=== PATIENT | male | born 1935 | race African-American/Black ===

== ENCOUNTER 2016-11-30 12:07 | Emergency (ER) | payer MEDICARE, MEDICAID ==
[~2016-11-30] VITALS: Ht 175.3 cm; Wt 72.0 kg
[~2016-11-30 12:07] MED LIST: ALBU2.5V13 IH; ASPI-1158 PO; BECL8.7A6 INH; ERGO500013 PO; FLUT1DIS3 IH; GUAI400T40 PO; LATA2.5D2 EACHEYE; LOSA100T14 PO; P50 PO; PANT40TA4 PO; PRAV20TA PO; TAMS-11 PO; TRU10 EACHEYE
[2016-11-30] MEDS ORDERED: SODIUM CHLORIDE 0.9% 1,000 ML IV ONE (15:09)
[2016-11-30] MEDS ORDERED: IBUPROFEN 600MG TABLET PO ONE (15:15)
[2016-11-30 15:34] LABS: BASOPHILS % 0.7 % (0.0-2.0); EOSINOPHILS % 7.3 % (0.0-5.0); HEMATOCRIT. 39.9 % (42.0-52.0); HEMOGLOBIN. 13.1 g/dL (14.0-18.0); LYMPHOCYTES % 37.5 % (20.0-50.0); MEAN CORPUSCULAR HEMOGLOBIN 28.8 pg (28.0-32.0); MEAN CORPUSCULAR VOLUME 87.9 fL (80.0-94.0); MEAN PLATELET VOLUME 10.8 fl (7.4-10.4); MONOCYTES % 7.9 % (2.0-8.0); NEUTROPHILS % 46.6 % (40.0-76.0); PLATELET 120 x1000/uL (130-400); RED BLOOD CELL COUNT 4.53 mill/uL (4.7-6.1); RED CELL DISTRIBUTION WIDTH 15.4 % (11.6-14.6)
[2016-11-30 15:35] LABS: CHLORIDE 106 mEq/L (98-107)
[2016-11-30 15:37] LABS: CARBON DIOXIDE 28 mEq/L (21-32)
[2016-11-30 15:43] LABS: TROPONIN I < 0.02 ng/mL (0.00-0.04)
[2016-11-30 15:59] LABS: CLARITY URINE CLOUDY (CLEAR); COLOR URINE DARK YELLOW (YELLOW); GLUCOSE URINE NEGATIVE (NEGATIVE); KETONES URINE TRACE (NEGATIVE); LEUKOCYTE ESTERASE URINE 3+ (NEGATIVE); NITRITE URINE POSITIVE (NEGATIVE); OCCULT BLOOD URINE TRACE (NEGATIVE); PROTEIN URINE NEGATIVE (NEGATIVE); SPECIFIC GRAVITY URINE 1.017 (1.005-1.030)
[2016-11-30] MEDS ORDERED: CEFTRIAXONE 1 G PREMIX 50 ML IV ONE (16:30)
[2016-11-30 17:21] VITALS: BP 147/78
== END 2016-11-30 19:05 | disposition home or self-care (01) ==
LOC: ER 12:22
DX: N39.0 Urinary tract infection, site not specified (principal); R51 Headache; I10 Essential (primary) hypertension; R91.8 Other nonspecific abnormal finding of lung field; D69.6 Thrombocytopenia, unspecified; J44.9 Chronic obstructive pulmonary disease, unspecified; J45.909 Unspecified asthma, uncomplicated; H40.9 Unspecified glaucoma; I25.2 Old myocardial infarction; Z79.82 Long term (current) use of aspirin; Z79.899 Other long term (current) drug therapy
CPT/HCPCS: 36415; 70450; 71010; 80048; 81001; 84484; 85025; 93005; 96361; 96365; 99285; J0696; J7030

== ENCOUNTER 2017-01-08 20:01 | Emergency (ER) | payer MEDICARE, MEDICAID ==
[~2017-01-08] VITALS: Ht 177.8 cm; Wt 96.0 kg
[2017-01-09] MEDS ORDERED: ALBUTEROL (0.083%) 2.5MG/3ML NEB HHN STA (01:00)
[2017-01-09] MEDS ORDERED: IPRATROPIUM BROMIDE (0.02%) 0.5MG/2.5ML NEB HHN STA (01:00)
[2017-01-09 01:51] LABS: CHLORIDE 106 mEq/L (98-107)
[2017-01-09 01:54] LABS: HEMATOCRIT. 38.6 % (42.0-52.0); HEMOGLOBIN. 12.8 g/dL (14.0-18.0); MEAN CORPUSCULAR HEMOGLOBIN 28.7 pg (28.0-32.0); MEAN CORPUSCULAR VOLUME 86.5 fL (80.0-94.0); MEAN PLATELET VOLUME 11.1 fl (7.4-10.4); PLATELET 129 x1000/uL (130-400); RED BLOOD CELL COUNT 4.46 mill/uL (4.7-6.1); RED CELL DISTRIBUTION WIDTH 14.1 % (11.6-14.6)
[2017-01-09 02:00] LABS: CARBON DIOXIDE 31 mEq/L (21-32)
[2017-01-09 03:49] VITALS: BP 120/66
[2017-01-09 06:14] LABS: PLATELET ESTIMATE SLIGHTLY DECREASED
== END 2017-01-09 03:53 | disposition home or self-care (01) ==
LOC: ER 20:16
DX: J45.909 Unspecified asthma, uncomplicated (principal); J20.9 Acute bronchitis, unspecified; I10 Essential (primary) hypertension; J44.0 Chronic obstructive pulmonary disease with (acute) lower respiratory infection; Z87.891 Personal history of nicotine dependence; Z79.82 Long term (current) use of aspirin
CPT/HCPCS: 36415; 71010; 80053; 85025; 94640; 99285; J7611

== ENCOUNTER 2017-02-21 10:50 | Emergency (ER) | payer MEDICARE, MEDICAID ==
[~2017-02-21] VITALS: Ht 177.8 cm; Wt 80.4 kg
[2017-02-21 12:48] LABS: BASOPHILS % 0.3 % (0.0-2.0); EOSINOPHILS % 3.3 % (0.0-5.0); HEMATOCRIT. 38.1 % (42.0-52.0); HEMOGLOBIN. 12.6 g/dL (14.0-18.0); LYMPHOCYTES % 21.1 % (20.0-50.0); MEAN CORPUSCULAR HEMOGLOBIN 28.7 pg (28.0-32.0); MEAN CORPUSCULAR VOLUME 86.7 fL (80.0-94.0); MEAN PLATELET VOLUME 10.4 fl (7.4-10.4); MONOCYTES % 12.8 % (2.0-8.0); NEUTROPHILS % 62.5 % (40.0-76.0); PLATELET 111 x1000/uL (130-400); RED BLOOD CELL COUNT 4.39 mill/uL (4.7-6.1); RED CELL DISTRIBUTION WIDTH 15.4 % (11.6-14.6)
[2017-02-21 12:54] LABS: CHLORIDE 106 mEq/L (98-107)
[2017-02-21 12:55] LABS: INR 1.1; PROTHROMBIN TIME 11.8 sec
[2017-02-21 12:59] LABS: GLUCOSE URINE NEGATIVE (NEGATIVE); KETONES URINE 1+ (NEGATIVE); LEUKOCYTE ESTERASE URINE 3+ (NEGATIVE); NITRITE URINE POSITIVE (NEGATIVE); OCCULT BLOOD URINE 3+ (NEGATIVE); PROTEIN URINE 3+ (NEGATIVE); SPECIFIC GRAVITY URINE 1.017 (1.005-1.030)
[2017-02-21 13:04] LABS: CARBON DIOXIDE 29 mEq/L (21-32)
[2017-02-21 13:04] LABS: CLARITY URINE CLOUDY (CLEAR); COLOR URINE RED (YELLOW)
[2017-02-21 13:37] LABS: *AMPHETAMINES SCREEN URINE NEGATIVE (NEGATIVE); *BARBITURATES SCREEN URINE NEGATIVE (NEGATIVE); *BENZODIAZEPINES SCREEN URINE NEGATIVE (NEGATIVE); *COCAINE SCREEN URINE NEGATIVE (NEGATIVE); CANNABINOID URINE SCREEN NEGATIVE (NEGATIVE); METHADONE URINE SCREEN NEGATIVE (NEGATIVE); OPIATES URINE SCREEN NEGATIVE (NEGATIVE); PHENCYCLIDINE URINE SCREEN NEGATIVE (NEGATIVE)
[2017-02-21 15:03] VITALS: BP 155/72
== END 2017-02-21 15:42 | disposition left against medical advice (07) ==
LOC: ER 12:13
DX: N39.0 Urinary tract infection, site not specified (principal); R33.9 Retention of urine, unspecified; R10.9 Unspecified abdominal pain; J45.909 Unspecified asthma, uncomplicated; J44.9 Chronic obstructive pulmonary disease, unspecified; I10 Essential (primary) hypertension; N40.0 Benign prostatic hyperplasia without lower urinary tract symptoms; Z79.82 Long term (current) use of aspirin
CPT/HCPCS: 36415; 80053; 80305; 81001; 85025; 85610; 93005; 99285; A4315

== ENCOUNTER 2017-03-13 17:58 | Inpatient (IN) | payer MEDICARE, MEDICAID ==
[~2017-03-13] VITALS: Ht 182.9 cm; Wt 70.3 kg
[2017-03-13 19:25] LABS: INR 1.1; PROTHROMBIN TIME 11.7 sec (9.4-11.6)
[2017-03-13 19:27] LABS: BASOPHILS % 0.6 % (0.0-2.0); EOSINOPHILS % 7.5 % (0.0-5.0); HEMATOCRIT. 36.7 % (42.0-52.0); MEAN CORPUSCULAR HEMOGLOBIN 28.4 pg (28.0-32.0); MEAN CORPUSCULAR VOLUME 86.5 fL (80.0-94.0); MEAN PLATELET VOLUME 10.4 fl (7.4-10.4); MONOCYTES % 10.2 % (2.0-8.0); NEUTROPHILS % 46.7 % (40.0-76.0); PLATELET 157 x1000/uL (130-400); RED BLOOD CELL COUNT 4.24 mill/uL (4.7-6.1); RED CELL DISTRIBUTION WIDTH 15.5 % (11.6-14.6)
[2017-03-13 19:38] LABS: CARBON DIOXIDE 28 mEq/L (21-32); CHLORIDE 109 mEq/L (98-107); TROPONIN I < 0.02 ng/mL (0.00-0.04)
[2017-03-13] MEDS ORDERED: MORPHINE SULFATE 4 MG/ML CPJ (NOT FOR IM USE) IV ONE (20:00)
[2017-03-13 22:00] VITALS: BP 135/87
[2017-03-13 23:31] LABS: CREATINE KINASE 53 IU/L (39-308); TROPONIN I < 0.02 ng/mL (0.00-0.04)
[2017-03-13] MEDS: POTASSIUM CHLORIDE 20MEQ TABLET SR PO SCH (23:43)
[2017-03-13] MEDS ORDERED: ONDANSETRON HCL 4MG/2ML VIAL IV PRN (23:43)
[2017-03-13] MEDS ORDERED: LORAZEPAM 2MG/ML CPJ IV PRN (23:44)
[2017-03-13] MEDS: MORPHINE SULFATE 2 MG/ML CPJ (NOT FOR IM USE) IV PRN (23:45)
[2017-03-14] VITALS (7 sets, daily range): BP systolic 97–154; BP diastolic 69–92
[2017-03-14 08:11] LABS: CREATINE KINASE 51 IU/L (39-308); TROPONIN I < 0.02 ng/mL (0.00-0.04)
[2017-03-14] MEDS: ASPIRIN 81MG EC TABLET PO SCH (08:39)
[2017-03-14] MEDS: ENOXAPARIN 40MG/0.4ML SYR SUBCUT SCH (08:39)
[2017-03-14] MEDS: POTASSIUM CHLORIDE 20MEQ TABLET SR PO SCH (08:39)
[2017-03-14] MEDS: TAMSULOSIN HCL 0.4MG SR CAPSULE PO SCH (08:39)
[2017-03-14] MEDS: FOLIC ACID 1MG TABLET PO SCH (08:40)
[2017-03-14] MEDS: LATANOPROST 0.005% OPHTH DROPS 2.5ML EACHEYE SCH ×3 (08:40→18:32)
[2017-03-14] MEDS: FUROSEMIDE 40MG/4ML VIAL IVP SCH (13:43)
[2017-03-14] MEDS: LOSARTAN POTASSIUM 100 MG TABLET PO SCH (13:43)
[2017-03-14] MEDS: PANTOPRAZOLE 40MG DR TABLET PO SCH (13:43)
[2017-03-14 17:47] LABS: *AMPHETAMINES SCREEN URINE NEGATIVE (NEGATIVE); *BARBITURATES SCREEN URINE NEGATIVE (NEGATIVE); *BENZODIAZEPINES SCREEN URINE NEGATIVE (NEGATIVE); *COCAINE SCREEN URINE NEGATIVE (NEGATIVE); CANNABINOID URINE SCREEN NEGATIVE (NEGATIVE); METHADONE URINE SCREEN NEGATIVE (NEGATIVE); OPIATES URINE SCREEN PRESUMTIVE POSITIVE (NEGATIVE); PHENCYCLIDINE URINE SCREEN NEGATIVE (NEGATIVE)
[2017-03-14] MEDS: LACTULOSE 20G/30ML UDC PO SCH ×2 (18:31→21:31)
[2017-03-14] MEDS: MORPHINE SULFATE 2 MG/ML CPJ (NOT FOR IM USE) IV PRN (21:30)
[2017-03-14 21:58] LABS: TROPONIN I < 0.02 ng/mL (0.00-0.04)
[2017-03-15] VITALS: BP 118/76
[2017-03-15 04:00] VITALS: BP 121/73
[2017-03-15] MEDS: LACTULOSE 20G/30ML UDC PO SCH ×3 (06:00→21:33)
[2017-03-15] MEDS: PANTOPRAZOLE 40MG DR TABLET PO SCH (06:17)
[2017-03-15 07:33] LABS: BASOPHILS % 0.6 % (0.0-2.0); EOSINOPHILS % 7.1 % (0.0-5.0); HEMATOCRIT. 36.8 % (42.0-52.0); HEMOGLOBIN. 12.2 g/dL (14.0-18.0); LYMPHOCYTES % 27.2 % (20.0-50.0); MEAN CORPUSCULAR HEMOGLOBIN 28.5 pg (28.0-32.0); MEAN CORPUSCULAR VOLUME 86.3 fL (80.0-94.0); MEAN PLATELET VOLUME 10.7 fl (7.4-10.4); MONOCYTES % 7.5 % (2.0-8.0); NEUTROPHILS % 57.6 % (40.0-76.0); PLATELET 154 x1000/uL (130-400); RED BLOOD CELL COUNT 4.27 mill/uL (4.7-6.1); RED CELL DISTRIBUTION WIDTH 14.9 % (11.6-14.6)
[2017-03-15] MEDS: FUROSEMIDE 40MG/4ML VIAL IVP SCH (08:43)
[2017-03-15] MEDS: ENOXAPARIN 40MG/0.4ML SYR SUBCUT SCH (08:43)
[2017-03-15 08:52] LABS: CARBON DIOXIDE 27 mEq/L (21-32); CHLORIDE 105 mEq/L (98-107)
[2017-03-15] MEDS: TAMSULOSIN HCL 0.4MG SR CAPSULE PO SCH ×2 (09:00→09:03)
[2017-03-15] MEDS ORDERED: ASPIRIN 81MG EC TABLET PO SCH (09:00)
[2017-03-15] MEDS: LOSARTAN POTASSIUM 100 MG TABLET PO SCH ×2 (09:00→09:03)
[2017-03-15] MEDS: LATANOPROST 0.005% OPHTH DROPS 2.5ML EACHEYE SCH ×3 (09:02→18:40)
[2017-03-15] MEDS: ASPIRIN 81MG EC TABLET PO SCH (09:03)
[2017-03-15] MEDS: POTASSIUM CHLORIDE 20MEQ TABLET SR PO SCH (09:03)
[2017-03-15] MEDS: FOLIC ACID 1MG TABLET PO SCH (09:03)
[2017-03-15 09:08] VITALS: BP 180/117
[2017-03-15 12:29] VITALS: BP 115/75
[2017-03-15] MEDS: HYDROCODONE/ACETAMINOPHEN 5/325MG TABLET PO PRN (12:43)
[2017-03-15 17:07] VITALS: BP 135/75
[2017-03-15 19:40] VITALS: BP 103/77
[2017-03-16] VITALS (7 sets, daily range): BP systolic 93–125; BP diastolic 49–78
[2017-03-16] MEDS: HYDROCODONE/ACETAMINOPHEN 5/325MG TABLET PO PRN (00:30)
[2017-03-16] MEDS: LACTULOSE 20G/30ML UDC PO SCH ×3 (06:00→21:26)
[2017-03-16] MEDS: PANTOPRAZOLE 40MG DR TABLET PO SCH (06:17)
[2017-03-16 07:39] LABS: CLARITY URINE CLEAR (CLEAR); COLOR URINE YELLOW (YELLOW); GLUCOSE URINE NEGATIVE (NEGATIVE); KETONES URINE NEGATIVE (NEGATIVE); LEUKOCYTE ESTERASE URINE NEGATIVE (NEGATIVE); NITRITE URINE NEGATIVE (NEGATIVE); OCCULT BLOOD URINE NEGATIVE (NEGATIVE); PH URINE 5.5 (4.5-8.0); PROTEIN URINE NEGATIVE (NEGATIVE); UROBILINOGEN URINE 0.2 E.U./dL (0.2-1.0)
[2017-03-16] MEDS: ASPIRIN 81MG EC TABLET PO SCH (08:54)
[2017-03-16] MEDS: LATANOPROST 0.005% OPHTH DROPS 2.5ML EACHEYE SCH ×3 (08:55→17:00)
[2017-03-16] MEDS: FOLIC ACID 1MG TABLET PO SCH (08:55)
[2017-03-16] MEDS: FUROSEMIDE 40MG/4ML VIAL IVP SCH (08:55)
[2017-03-16] MEDS: POTASSIUM CHLORIDE 20MEQ TABLET SR PO SCH (08:55)
[2017-03-16] MEDS: ENOXAPARIN 40MG/0.4ML SYR SUBCUT SCH (08:56)
[2017-03-16] MEDS: LOSARTAN POTASSIUM 100 MG TABLET PO SCH (08:56)
[2017-03-16] MEDS ORDERED: TAMSULOSIN HCL 0.4MG SR CAPSULE PO SCH (09:00)
[2017-03-16 10:39] LABS: BASOPHILS % 0.6 % (0.0-2.0); EOSINOPHILS % 6.8 % (0.0-5.0); HEMOGLOBIN. 13.5 g/dL (14.0-18.0); LYMPHOCYTES % 32.2 % (20.0-50.0); MEAN CORPUSCULAR HEMOGLOBIN 28.3 pg (28.0-32.0); MEAN CORPUSCULAR VOLUME 86.2 fL (80.0-94.0); MEAN PLATELET VOLUME 9.9 fl (7.4-10.4); MONOCYTES % 8.4 % (2.0-8.0); PLATELET 176 x1000/uL (130-400); RED BLOOD CELL COUNT 4.75 mill/uL (4.7-6.1); RED CELL DISTRIBUTION WIDTH 14.8 % (11.6-14.6)
[2017-03-16 11:01] LABS: CARBON DIOXIDE 31 mEq/L (21-32); CHLORIDE 104 mEq/L (98-107); HDL CHOLESTEROL 67 mg/dL (40-59); LDL CHOLESTEROL 79 mg/dL (5-100)
[2017-03-16] MEDS ORDERED: POTASSIUM CHLORIDE 20MEQ TABLET SR PO NR (11:15)
[2017-03-16] MEDS ORDERED: IPRATROPIUM/ALBUTEROL 0.5-3(2.5)MG/3ML NEB HHN PRN (11:15)
[2017-03-16] MEDS ORDERED: ALBUTEROL 6.7GM HFA INHALER ORI SCH (11:45)
[2017-03-16] MEDS: IPRATROPIUM/ALBUTEROL 0.5-3(2.5)MG/3ML NEB HHN SCH ×3 (13:55→20:32)
[2017-03-16] MEDS: MAGNESIUM 1 G PREMIX 100 ML IV NR ×2 (13:59→14:17)
[2017-03-17] VITALS: BP 127/77
[2017-03-17] MEDS: IPRATROPIUM/ALBUTEROL 0.5-3(2.5)MG/3ML NEB HHN SCH ×2 (00:36→04:43)
[2017-03-17] MEDS: HYDROCODONE/ACETAMINOPHEN 5/325MG TABLET PO PRN (01:43)
[2017-03-17 04:00] VITALS: BP 118/67
[2017-03-17 06:56] LABS: BASOPHILS % 0.6 % (0.0-2.0); HEMATOCRIT. 37.9 % (42.0-52.0); HEMOGLOBIN. 12.6 g/dL (14.0-18.0); LYMPHOCYTES % 32.6 % (20.0-50.0); MEAN CORPUSCULAR HEMOGLOBIN 28.5 pg (28.0-32.0); MEAN CORPUSCULAR VOLUME 86.2 fL (80.0-94.0); MEAN PLATELET VOLUME 10.6 fl (7.4-10.4); MONOCYTES % 7.3 % (2.0-8.0); NEUTROPHILS % 54.5 % (40.0-76.0); PLATELET 162 x1000/uL (130-400); RED CELL DISTRIBUTION WIDTH 14.9 % (11.6-14.6)
[2017-03-17 08:22] LABS: CARBON DIOXIDE 30 mEq/L (21-32); CHLORIDE 105 mEq/L (98-107)
== END 2017-03-17 08:45 | disposition home or self-care (01) | DRG 190 ==
LOC: ER 17:58 → 5WST 20:06 → EDBEDREQ 20:07 → EDBEDREQTM 20:07 → ENRESERV 20:20
PROVIDERS: ADMIT Internal Medicine Nephrology; ATTEND Internal Medicine Nephrology
DX: J44.1 Chronic obstructive pulmonary disease with (acute) exacerbation (principal); I50.43 Acute on chronic combined systolic (congestive) and diastolic (congestive) heart failure; E46 Unspecified protein-calorie malnutrition; I11.0 Hypertensive heart disease with heart failure; N40.0 Benign prostatic hyperplasia without lower urinary tract symptoms; E78.00 Pure hypercholesterolemia, unspecified; E87.6 Hypokalemia; I25.2 Old myocardial infarction; Z87.891 Personal history of nicotine dependence; Z79.51 Long term (current) use of inhaled steroids; Z79.82 Long term (current) use of aspirin; Z79.899 Other long term (current) drug therapy; Z68.21 Body mass index [BMI] 21.0-21.9, adult
CPT/HCPCS: 36415; 71010; 80048; 80053; 80061; 80305; 81003; 82550; 83036; 83690; 83735; 83880; 84443; 84484; 85025; 85610; 93005; 93306; 94640; 94664; 96374; 99285; J1650; J1940; J2270; J3475; J7030; J7620

== ENCOUNTER 2017-03-17 19:45 | Inpatient (IN) | payer MEDICARE, MEDICAID ==
[~2017-03-17] VITALS: Ht 180.3 cm; Wt 79.4 kg
[2017-03-17] MEDS ORDERED: ASPIRIN 81MG TABLET PO STA (20:18)
[2017-03-17 20:42] LABS: BASOPHILS % 0.7 % (0.0-2.0); EOSINOPHILS % 6.6 % (0.0-5.0); HEMATOCRIT. 38.5 % (42.0-52.0); HEMOGLOBIN. 12.7 g/dL (14.0-18.0); LYMPHOCYTES % 18.5 % (20.0-50.0); MEAN CORPUSCULAR HEMOGLOBIN 28.6 pg (28.0-32.0); MEAN CORPUSCULAR VOLUME 86.4 fL (80.0-94.0); MEAN PLATELET VOLUME 10.2 fl (7.4-10.4); MONOCYTES % 7.3 % (2.0-8.0); NEUTROPHILS % 66.9 % (40.0-76.0); PLATELET 174 x1000/uL (130-400); RED BLOOD CELL COUNT 4.46 mill/uL (4.7-6.1); RED CELL DISTRIBUTION WIDTH 15.1 % (11.6-14.6)
[2017-03-17 20:56] LABS: CARBON DIOXIDE 30 mEq/L (21-32); CHLORIDE 105 mEq/L (98-107); TROPONIN I < 0.02 ng/mL (0.00-0.04)
[2017-03-18] MEDS ORDERED: NITROGLYCERIN OINT 1GM/INCH UDPKT TD ONE (00:30)
[2017-03-18] MEDS ORDERED: DIPHENHYDRAMINE 50MG/ML VIAL IV PRN (05:45)
[2017-03-18] MEDS ORDERED: GUAIFENESIN 200MG/10ML SUGAR FREE UDC PO PRN (05:45)
[2017-03-18] MEDS ORDERED: ONDANSETRON HCL 4MG/2ML VIAL IV PRN (05:45)
[2017-03-18] MEDS ORDERED: ACETAMINOPHEN 325MG TABLET PO PRN (05:45)
[2017-03-18] MEDS ORDERED: MAGNESIUM/ALUMINUM HYDROXIDE/SIMETHICONE 30ML UDC PO PRN (05:45)
[2017-03-18] MEDS ORDERED: CLONIDINE 0.1MG TABLET PO PRN (05:45)
[2017-03-18] MEDS ORDERED: IPRATROPIUM/ALBUTEROL 0.5-3(2.5)MG/3ML NEB INH PRN (05:45)
[2017-03-18 08:00] VITALS: BP_SYST 120; BP_SYST 146; BP_DIAS 63; BP_DIAS 70
[2017-03-18 08:45] VITALS: BP 120/70
[2017-03-18] MEDS: PREDNISONE 20MG TABLET PO SCH (09:44)
[2017-03-18] MEDS: LOSARTAN POTASSIUM 100 MG TABLET PO SCH (09:44)
[2017-03-18] MEDS: SODIUM CHLORIDE 0.9% INJ 3ML FLUSH IVF SCH ×3 (09:44→20:53)
[2017-03-18] MEDS: ASPIRIN 81MG EC TABLET PO SCH (09:44)
[2017-03-18] MEDS: TAMSULOSIN HCL 0.4MG SR CAPSULE PO SCH (09:44)
[2017-03-18 12:00] VITALS: BP 111/75
[2017-03-18] MEDS: DORZOLAMIDE 2% OPHTH 10 ML BOTTLE EACHEYE SCH ×2 (12:22→20:50)
[2017-03-18 16:00] VITALS: BP 119/73
[2017-03-18 20:00] VITALS: BP 101/61
[2017-03-18] MEDS ORDERED: LATANOPROST 0.005% OPHTH DROPS 2.5ML EACHEYE SCH (21:00)
[2017-03-18] MEDS: IPRATROPIUM/ALBUTEROL 0.5-3(2.5)MG/3ML NEB HHN SCH (23:43)
[2017-03-19] VITALS: BP 104/65
[2017-03-19 04:00] VITALS: BP 112/65
[2017-03-19] MEDS: IPRATROPIUM/ALBUTEROL 0.5-3(2.5)MG/3ML NEB HHN SCH ×5 (04:14→16:33)
[2017-03-19] MEDS: SODIUM CHLORIDE 0.9% INJ 3ML FLUSH IVF SCH (06:19)
[2017-03-19 08:00] VITALS: BP 113/66
[2017-03-19] MEDS: TAMSULOSIN HCL 0.4MG SR CAPSULE PO SCH (08:11)
[2017-03-19] MEDS: ASPIRIN 81MG EC TABLET PO SCH (08:11)
[2017-03-19] MEDS: DORZOLAMIDE 2% OPHTH 10 ML BOTTLE EACHEYE SCH (08:11)
[2017-03-19] MEDS: LOSARTAN POTASSIUM 100 MG TABLET PO SCH (08:11)
[2017-03-19] MEDS: PREDNISONE 20MG TABLET PO SCH (08:11)
[2017-03-19 12:00] VITALS: BP 106/68
[2017-03-19 15:28] VITALS: BP 113/66
== END 2017-03-19 15:55 | disposition home or self-care (01) | DRG 313 ==
LOC: ER 20:12 → 8WST 03-18 00:42 → ENRESERV 03-18 07:10
PROVIDERS: ADMIT Internal Medicine; ATTEND Internal Medicine
DX: R07.89 Other chest pain (principal); I25.2 Old myocardial infarction; J44.9 Chronic obstructive pulmonary disease, unspecified; I10 Essential (primary) hypertension; I25.10 Atherosclerotic heart disease of native coronary artery without angina pectoris; E78.00 Pure hypercholesterolemia, unspecified; N40.0 Benign prostatic hyperplasia without lower urinary tract symptoms; H40.9 Unspecified glaucoma; Z82.49 Family history of ischemic heart disease and other diseases of the circulatory system; Z80.9 Family history of malignant neoplasm, unspecified; Z87.891 Personal history of nicotine dependence; Z79.82 Long term (current) use of aspirin; Z79.899 Other long term (current) drug therapy
CPT/HCPCS: 36415; 71010; 80053; 83690; 83880; 84484; 85025; 93005; 93970; 94640; 94664; 99285; J7512; J7620

== ENCOUNTER 2017-04-28 11:58 | Emergency (ER) | payer MEDICARE, MEDICAID ==
[~2017-04-28] VITALS: Ht 162.6 cm; Wt 72.0 kg
[2017-04-28] MEDS ORDERED: ACETAMINOPHEN 325MG TABLET PO ONE (15:30)
[2017-04-29] MEDS ORDERED: ACETAMINOPHEN 500MG TABLET PO ONE (04:45)
[2017-04-29] MEDS ORDERED: ACETAMINOPHEN 500MG TABLET ONE (05:20)
[2017-04-29 10:15] VITALS: BP 110/77
== END 2017-04-29 10:23 | disposition home or self-care (01) ==
LOC: ER 12:09
DX: R51 Headache (principal); Z59.0 Homelessness; Y93.89 Activity, other specified; Y09 Assault by unspecified means; Y92.89 Other specified places as the place of occurrence of the external cause; Y99.8 Other external cause status
CPT/HCPCS: 70450; 70486; 99284

== ENCOUNTER 2017-08-21 16:13 | Emergency (ER) | payer MEDICARE, MEDICAID ==
[~2017-08-21] VITALS: Ht 172.7 cm; Wt 75.0 kg
[~2017-08-21 16:13] MED LIST changes: -BECL8.7A6 INH; +CEPH500T PO; +CHOL500010 PO; -ERGO500013 PO; -GUAI400T40 PO; -LATA2.5D2 EACHEYE; -LOSA100T14 PO; +LOSA1TAB37 PO; +NITR100C PO; +TC025U80 TP; -TRU10 EACHEYE
[2017-08-21 16:16] VITALS: BP 106/68
[2017-08-21 16:59] LABS: BASOPHILS % 0.4 % (0.0-2.0); EOSINOPHILS % 3.7 % (0.0-5.0); HEMATOCRIT. 38.5 % (42.0-52.0); HEMOGLOBIN. 12.5 g/dL (14.0-18.0); LYMPHOCYTES % 32.9 % (20.0-50.0); MEAN CORPUSCULAR HEMOGLOBIN 28.3 pg (28.0-32.0); MEAN CORPUSCULAR VOLUME 87.4 fL (80.0-94.0); MEAN PLATELET VOLUME 9.6 fl (7.4-10.4); MONOCYTES % 9.9 % (2.0-8.0); NEUTROPHILS % 53.1 % (40.0-76.0); PLATELET 140 x1000/uL (130-400); RED BLOOD CELL COUNT 4.41 mill/uL (4.7-6.1); RED CELL DISTRIBUTION WIDTH 15.4 % (11.6-14.6)
[2017-08-21 17:08] LABS: CHLORIDE 104 mEq/L (98-107)
[2017-08-21 17:10] LABS: INR 1.1; PROTHROMBIN TIME 11.4 sec (9.4-11.6)
[2017-08-21 17:15] LABS: TROPONIN I < 0.02 ng/mL (0.00-0.04)
== END 2017-08-21 19:12 | disposition left against medical advice (07) ==
LOC: ER 16:26
DX: R51 Headache (principal); E87.6 Hypokalemia; I11.0 Hypertensive heart disease with heart failure; I50.9 Heart failure, unspecified; J44.9 Chronic obstructive pulmonary disease, unspecified; H40.9 Unspecified glaucoma
CPT/HCPCS: 36415; 80053; 84484; 85025; 85610; 99283